=== PATIENT | female | born 1950 | race Two or more races ===

== ENCOUNTER 2021-08-10 10:09 | Emergency (ER) | payer OTHER, SELFPAY ==
[2021-08-10 11:00] VITALS: BP 156/93; PULSE 64; RESP 16; TEMP 36.1; O2SAT 99; BMI 23.0
--- NOTE | 2021-08-10 12:45 | ED.EYEPROB ---
HPI - Eye Problem General Chief complaint: Eye Problems Stated complaint: swollen eyes Time Seen by Provider: 08/10/21 11:44 Source: patient and family Mode of arrival: ambulatory Limitations: no limitations History of Present Illness HPI Narrative: Patient comes to emergency room complaining of swelling and redness around both eyes, has been ongoing for about a week. Patient states she has history cataracts and macular degeneration, patient is legally blind, states she can see shadows and light. Patient states that she has no actual eye pain, she does not have any discomfort with eye movement. Patient states that the skin around her eyes is scaling of, sometimes it is itchy, no burning sensation. Patient states that she does not have any new medications, patient recently restarted using dorzolamide, but she has used this before without any prior reactions. Patient states that this morning she woke up with crusty eyelids in the left eye. Related Data Previous Rx's Medication Instructions Recorded erythromycin 5 mg/gram (0.5 %) eye 1 appl ophthalmic-Left DAILY #3.5 08/10/21 ointment grams prednisone 50 mg tablet 50 mg PO DAILY #4 tabs 08/10/21 Allergies Allergy/AdvReac Type Severity Reaction Status Date / Time No Known Allergies Allergy Verified 08/10/21 11:03 Review of Systems Review of Systems: Constitutional : No Weight loss, No Fever, No Chills, No Night Sweats, No Fatigue, No Malaise ENT/Mouth : No Hearing loss, No Ear Pain, No Nasal Congestion, No Sinus Pain, No Hoarseness, No sore throat, No Rhinorrhea, No Swallowing Difficulty Eyes: No Eye Pain, No Swelling, No Redness, No Foreign Body, No Discharge, No Vision Changes Cardiovascular : No Chest Pain, No SOB, No Dyspnea on Exertion, No Orthopnea, No Edema, No Palpitations Respiratory : No Cough, No Sputum, No Wheezing, No Smoke Exposure, No Dyspnea Gastrointestinal : No Nausea, No Vomiting, No Diarrhea, No Constipation, No abdominal Pain, No Hematochezia, No Melena Genitourinary : no irregular bleeding, No Dysuria, No Urinary Frequency, No Hematuria, No Urinary Incontinence, No Urgency, No Flank Pain, No Urinary Flow Changes, No Hesitancy Musculoskeletal : No joint pain, No Myalgias, No Joint Swelling Skin : Skin around the eyes is flaking, erythematous Neuro : No Weakness, No Numbness, No Paresthesias, No Loss of Consciousness, No Dizziness, No Headache Psych : No Anxiety/Panic, No Depression, No SI/HI/AH/VH, No Social Issues, Heme/Lymph: No Bruising, No Bleeding,No Lymphadenopathy Endocrine : No Polyuria, No Polydipsia, No Temperature Intolerance [facility] Past Medical History Medical History Glaucoma Macular degeneration Social History Social History Advance Directives: No Advance Directives Information Provided: Yes Physical Exam Vital Signs: Vital Signs: Last Vital Signs Temp 97.0 F 08/10/21 11:00 Pulse 64 08/10/21 11:00 Resp 16 08/10/21 11:00 BP 156/93 H 08/10/21 11:00 Pulse Ox 99 08/10/21 11:00 O2 Del Method 08/10/21 11:00 BMI result Body Mass Index 23.0 Const: Other: Appearance: Alert. Oriented X3. No acute distress. Eyes: Pupils are round, minimally reactive bilaterally. Patient is legally blind. There are no foreign bodies in either eye. The skin around the eye is erythematous, mildly peeling, erythematous. There is mild whitish discharge in the left eye. ENT: Pharynx normal. Neck: Normal inspection. Neck supple. No lymph nodes noted. No crepitus CVS: Normal heart rate and rhythm. Pulses normal. Normal S1 and S2 Respiratory: No respiratory distress. Breath sounds normal. No Wheezing. No rales Abdomen: Soft and nontender. No rigidity. No distention. Skin: Skin warm and dry. See eyes above Extremities: No lower extremity edema. No Lacerations. No Rash Neuro: Oriented X 3. No motor deficit. No sensory deficit. Moving all extremities. No slurred speech. CN 2 through 12 grossly intact Psych: calm, cooperative, normal affect Course Course Course Narrative: I discussed with the patient that she had an allergic reaction versus dermatitis. Patient has no difficulty breathing, no hives. Patient was given prednisone and the diphenhydramine p.o. in the emergency room., also will be applying erythromycin especially to the left eye, since patient states that she wakes up with a crusty eyelid and she does have mild discharge. 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 If you have any worsening or new symptoms, please return to the emergency room or call 911 Prescriptions: New prednisone 50 mg tablet 50 mg PO DAILY Qty: 4 0RF erythromycin 5 mg/gram (0.5 %) ointment 1 appl ophthalmic-Left DAILY Qty: 3.5 0RF
[2021-08-10] MEDS: predniSONE 20 MG TABLET 60 MG PO (13:42)
[2021-08-10] MEDS: diphenhydrAMINE HCL 25 MG TABLET PO (13:42)
== END 2021-08-10 14:05 | disposition home or self-care (01) ==
PROVIDERS: Emergency Provider Emergency Medicine
DX: L30.9 Dermatitis, unspecified (principal)
CPT/HCPCS: 99281; 99283; Q0163

== ENCOUNTER 2021-11-11 19:27 | Emergency (ER) | payer OTHER, SELFPAY ==
[2021-11-11 20:35] VITALS: BP 149/68; PULSE 79; RESP 16; TEMP 36.7; O2SAT 100; BMI 22.1
--- OUTSIDE RECORDS SUMMARY | 2021-11-12 00:08 | XMS_ITS ---
:1950 Author Care Team Providers Name Role Phone Prince Baer Primary Care Provider Unavailable Allergies None recorded. Medications Name Status Start Date Stop Date ? ? amlodipine 10 mg tablet Active ? Not avai lable TAKE 1 TABLET BY MOUTH DAILY FOR BLOOD PRESSURE. DO NOT STOP TH IS MEDICATION carvedilol 12.5 mg tablet Active ? Not av ailable dorzolamide 22.3 mg-timolol 6.8 mg/mL eye drops Active ? Not available erythromycin 5 mg/gram (0.5 %) eye ointment Active ? Not available APPLY TO LEFT EYE EVERY DAY hydrochlorothiazide 25 mg tablet Completed ? 08/27/2021 TAKE 1 TABLET BY MOUTH EVERY DAY ketorolac 0.5 % eye drops Active ? Not av ailable PLEASE SEE ATTACHED FOR DETAILED DIRECTIONS lisinopril 40 mg tablet Active ? Not avai lable TAKE 1 TABLET BY MOUTH ONCE DAILY ofloxacin 0.3 % eye drops Active ? Not av ailable OneTouch Verio test strips Active ? Not a vailable USE DIRECTED TO MONITOR BLOOD SUGAR DAILY E11.9 peg-electrolyte solution 420 gram oral solution Active ? Not available PLEASE FOLLOW [facility] INSTRUCTIONS TAKE ORALLY IN 1 DAY pravastatin Completed ? 08/27/2021 prednisolone acetate 1 % eye drops,suspension Active ? Not available PLEASE SEE ATTACHED FOR DETAILED DIRECTIONS prednisone 50 mg tablet Completed ? 08/22/19 TAKE 1 TABLET BY MOUTH EVERY DAY Prolensa 0.07 % eye drops Active ? Not av ailable PLACE 1 DROP INTO THE RIGHT EYE DAILY. Problems Name Status Onset Date Source ? Diabetes Mellitus Active 08/27/2021 ? Hyperlipidemia Active 08/27/2021 ? Leukocytosis Active 08/27/2021 ? Essential Hypertension Active 08/27/2021 ? Procedures None recorded. Results Lab Results None recorded. Past Encounters 10/16/2021 Prince Baer MD: [address] [facility], [address], [place] [address], Ph. 10/06/2021 Age Related Macular Degeneration; [place] ma; Screening for Malignant Neoplasm of Cervix; Essential Hypertension; Diabetes Mellitus; Hyperlipidemia; Leukocytosis Prince Baer MD: [address] [facility], [address] [address], Ph. 08/27/2021 Age Related Macular Degeneration; [place] ma; Screening for Malignant Neoplasm of Cervix; Essential Hypertension; Diabetes Mellitus; Hyperlipidemia; Leukocytosis Prince Baer MD: [address] [facility], [address], [place] [address], Ph. 08/21/2021 Age Related Macular Degeneration; [place] ma; Screening for Malignant Neoplasm of Cervix; Essential Hypertension Prince Baer MD: [address] [facility], [address], [place] [address], Ph. Social History None recorded. Vaccine List None recorded. Plan of Care Reminders Provider Appointments None recorded. ? ? Lab None recorded. ? ? Referral None recorded. ? ? Procedures None recorded. ? ? Surgeries None recorded. ? ? Imaging None recorded. ? ? Vitals Blood Pressure 150/80 mm[Hg]
--- OUTSIDE RECORDS SUMMARY | 2021-11-12 00:09 | XMS_ITS | Encounter Summary ---
:1950 Author Reason for Visit None recorded. Assessment and Plan Assessment Note No show, LVM x 2 ; also, inactive [facility] are Discussion Note: None recorded.Patient educational handouts: No information available. Plan of Care Reminders Provider Appointments None recorded. ? ? Lab None recorded. ? ? Referral None recorded. ? ? Procedures None recorded. ? ? Surgeries None recorded. ? ? Imaging None recorded. ? ? Medications Name Start Date ? ? amlodipine 10 mg tablet ? TAKE 1 TABLET BY MOUTH DAILY FOR BLOOD PRESSURE. DO N OT STOP THIS MEDICATION carvedilol 12.5 mg tablet ? TAKE 1 TABLET BY MOUTH TWICE DAILY WITH FOOD dorzolamide 22.3 mg-timolol 6.8 mg/mL eye drops ? INSTILL 1 DROP INTO BOTH EYES TWICE A DAY erythromycin 5 mg/gram (0.5 %) eye ointment ? APPLY TO LEFT EYE EVERY DAY ketorolac 0.5 % eye drops ? PLEASE SEE ATTACHED FOR DETAILED DIRECTIONS lisinopril 40 mg tablet ? TAKE 1 TABLET BY MOUTH ONCE DAILY ofloxacin 0.3 % eye drops ? PLEASE SEE ATTACHED FOR DETAILED DIRECTIONS OneTouch Verio test strips ? USE DIRECTED TO MONITOR BLOOD SUGAR DAILY E11.9 peg-electrolyte solution 420 gram oral solution ? PLEASE FOLLOW [facility] INSTRUCTIONS TAKE ORALLY IN 1 DAY prednisolone acetate 1 % eye drops,suspension ? PLEASE SEE ATTACHED FOR DETAILED DIRECTIONS Prolensa 0.07 % eye drops ? PLACE 1 DROP INTO THE RIGHT EYE DAILY. Medications Administered None recorded. Vitals None recorded. Results Lab Results None recorded. Allergies None recorded. Problems Name Status Onset Date Source ? Diabetes Mellitus Active 08/27/2021 ? Hyperlipidemia Active 08/27/2021 ? Leukocytosis Active 08/27/2021 ? Essential Hypertension Active 08/27/2021 ? Procedures None recorded. Vaccine List None recorded. Social History None recorded. Functional Status Unknown. Past Encounters 10/16/2021 Prince Baer MD: [address] [facility], [address], [place] [address], Ph. 10/06/2021 Age Related Macular Degeneration; [place] ma; Screening for Malignant Neoplasm of Cervix; Essential Hypertension; Diabetes Mellitus; Hyperlipidemia; Leukocytosis Prince Baer MD: [address] [place] [address], [address], [place] [address], Ph. History of Present Illness None recorded. Review of Systems None recorded. Physical Exam None recorded.
== END 2021-11-12 02:14 | disposition left against medical advice (07) ==
PROVIDERS: Emergency Provider Emergency Medicine
DX: R60.9 Edema, unspecified (principal)
CPT/HCPCS: 99281